=== PATIENT | male | born 1930 | race Caucasian/White ===

== ENCOUNTER 2017-07-09 00:33 | Inpatient (IN) | payer MEDICARE ==
[2017-07-09 00:53] VITALS: BMI 22.7
--- NOTE | 2017-07-09 01:13 | C.PDOC ---
History Of Present Illness Patient is a 87 y/o male who presents to the ED by police s/p wandering on [facility] after a local business direct response consultant called the police. Patient is unable to recall address or purpose of wandering on the street. Denies any PMHx, PSHx, allergies, or current medications. No physical complaints at this time. Chief Complaint (Nursing): Medical Clearance History Per: Patient, Other (police) History/Exam Limitations: no limitations Onset/Duration Of Symptoms: Mins Recent travel outside of the [place]: No Past Medical History Reviewed: Historical Data, Nursing Documentation, Vital Signs Vital Signs: Last Vital Signs Temp 98.8 F 07/09/17 06:11 Pulse 93 H 07/09/17 06:11 Resp 18 07/09/17 06:11 BP 126/69 07/09/17 06:11 Pulse Ox 96 07/09/17 06:11 - Medical History PMH: No Chronic Diseases Surgical History: No Surg Hx Family History: States: No Known Family Hx - Social History Hx Alcohol Use: (unknown) Hx Substance Use: (unknown) Review Of Systems Constitutional: Negative for: Fever, Chills Eyes: Negative for: Pain ENT: Negative for: Ear Pain Cardiovascular: Negative for: Chest Pain, Palpitations, Orthopnea, Edema, Light Headedness Respiratory: Negative for: Cough, Shortness of Breath, Hemoptysis, SOB with Excertion, Pleuritic Pain, Sputum Gastrointestinal: Negative for: Nausea, Vomiting, Abdominal Pain Genitourinary: Negative for: Dysuria Musculoskeletal: Negative for: Neck Pain Skin: Negative for: Rash Neurological: Negative for: Weakness Psych: Negative for: Anxiety, Psychosis Physical Exam - Physical Exam Appears: Well, Non-toxic, No Acute Distress, Other (elderly) Skin: Normal Color, Warm, Dry Head: Atraumatic, Normacephalic Oral Mucosa: Moist Tongue: Normal Appearing Lips: Normal Appearing Teeth: Normal Dentition Throat: Normal Neck: Normal Chest: Symmetrical Cardiovascular: Rhythm Regular, No Murmur Respiratory: Normal Breath Sounds, No Rales, No Rhonchi, No Wheezing Gastrointestinal/Abdominal: Soft, No Tenderness Back: Normal Inspection Male Genital: Normal Inspection Neurological/Psych: Oriented x3 ED Course And Treatment - Laboratory Results Result Diagrams: 07/09/17 01:56 07/09/17 01:56 O2 Sat by Pulse Oximetry: 95 (room air) Pulse Ox Interpretation: Normal - CT Scan/US Head Other Rad Studies (CT/US): Read By Radiologist CT/US Interpretation: EXAM: CT Head Without Intravenous Contrast. CLINICAL HISTORY: 87 years old, male; Pain; Other: Confused; Additional info: Altered. TECHNIQUE: Axial computed tomography images of the head/brain without intravenous contrast. All CT scans at. this facility use one or more dose reduction techniques, viz.: automated exposure control; ma/kV. adjustment per patient size (including targeted exams where dose is matched to indication; i.e. head);. or iterative reconstruction technique. Coronal and sagittal reformatted images were created and reviewed. COMPARISON: No relevant prior studies available. FINDINGS: Brain: Moderate atrophy. Prominent extra-axial spaces along frontal convexities. No intracranial. hemorrhage. No mass. Few scattered foci of decreased attenuation within periventricular/subcortical. white matter. No definite edema. Ventricles: No hydrocephalus. Bones/joints: No acute fracture. Soft tissues: Unremarkable. Vasculature: Atherosclerotic disease of intracranial arteries. Sinuses: Scattered mild mucosal thickening of ethmoid sinuses. Mild mucosal thickening/retention. cysts of maxillary sinuses. Mastoid air cells: No mastoid effusion. Orbits: Unremarkable as visualizedIMPRESSION: 1. Nonspecific white matter changes. Acute infarction may be CT occult within first 24 hours. If a. focal deficit persists, consider followup CT or MRI for further evaluation. 2. Incidental/non-acute findings are described above. Progress Note: Head CT and UA ordered. Medical Decision Making Medical Decision Making: pt without medical complaints. pt will be seen by socially responsible investment adviser today. Disposition - Disposition Disposition Time: 07:07 Condition: STABLE Forms: [facility] (Polish) - POA Present On Arrival: None - Clinical Impression Clinical Impression: Confusion - Scribe Statement The provider has reviewed the documentation as recorded by the Scribe Queta Johnson All medical record entries made by the Scribe were at my direction and personally dictated by me. I have reviewed the chart and agree that the record accurately reflects my personal performance of the history, physical exam, medical decision making, and the department course for this patient. I have also personally directed, reviewed, and agree with the discharge instructions and disposition.
[2017-07-09 02:12] LABS: EOS % 1.7 % (0.0-4.0); HEMATOCRIT 36.7 % (35.0-51.0); MEAN CELL VOLUME 88.2 fL (80.0-94.0); MEAN CORPUSCULAR HEMOGLOBIN 30.1 pg (27.0-31.0); MEAN CORPUSCULAR HGB CONC 34.2 g/dL (33.0-37.0); MEAN PLATELET VOLUME 9.6 fL (7.2-11.7); MONO % 12.8 % (0.0-10.0); RED CELL DISTRIBUTION WIDTH 14.7 % (11.5-14.5); WHITE BLOOD COUNT 6.3 K/uL (4.8-10.8)
[2017-07-09 02:13] LABS: BASO # 0.1 K/uL (0.0-0.2); BASO % 1.1 % (0.0-2.0); EOS # 0.1 K/uL (0.0-0.7); LYMPH # 1.8 K/uL (1.0-4.3); MONO # 0.8 K/uL (0.0-0.8)
[2017-07-09 02:23] LABS: ALKALINE PHOSPHATASE 92 U/L (38-126); ALT/SGPT 18 U/L (21-72); AST/SGOT 29 U/L (17-59); BILIRUBIN,TOTAL 0.6 mg/dL (0.2-1.3); BLOOD UREA NITROGEN 23 mg/dL (9-20); CARBON DIOXIDE 27 mmol/L (22-30); CHLORIDE 100 mmol/L (98-107); GFR AFRICAN-AMERICAN > 60; GLUCOSE,RANDOM 100 mg/dL (75-110); POTASSIUM 4.4 mmol/L (3.6-5.2); SODIUM 136 mmol/L (132-148)
--- NOTE | 2017-07-09 02:48 | CT ---
EXAM: CT Head Without Intravenous Contrast CLINICAL HISTORY: 87 years old, male; Pain; Other: Confused; Additional info: Altered TECHNIQUE: Axial computed tomography images of the head/brain without intravenous contrast. All CT scans at this facility use one or more dose reduction techniques, viz.: automated exposure control; ma/kV adjustment per patient size (including targeted exams where dose is matched to indication; i.e. head); or iterative reconstruction technique. Coronal and sagittal reformatted images were created and reviewed. COMPARISON: No relevant prior studies available. FINDINGS: Brain: Moderate atrophy. Prominent extra-axial spaces along frontal convexities. No intracranial hemorrhage. No mass. Few scattered foci of decreased attenuation within periventricular/subcortical white matter. No definite edema. Ventricles: No hydrocephalus. Bones/joints: No acute fracture. Soft tissues: Unremarkable. Vasculature: Atherosclerotic disease of intracranial arteries. Sinuses: Scattered mild mucosal thickening of ethmoid sinuses. Mild mucosal thickening/retention cysts of maxillary sinuses. Mastoid air cells: No mastoid effusion. Orbits: Unremarkable as visualized. Dental: Dental caries. IMPRESSION: 1. Nonspecific white matter changes. Acute infarction may be CT occult within first 24 hours. If a focal deficit persists, consider followup CT or MRI for further evaluation. 2. Incidental/non-acute findings are described above.
[2017-07-09 07:42] LABS: RBC URINE 2431 /hpf (0-3); URINE BILIRUBIN NEGATIVE (NEGATIVE); URINE BLOOD 3+ (NEGATIVE); URINE COLOR Yellow (YELLOW); URINE GLUCOSE (UA) NORMAL (Normal); URINE KETONE NEGATIVE (NEGATIVE); URINE LEUKOCYTE ESTERASE TRACE Leu/uL (Negative); URINE PROTEIN 2+ mg/dL (NEGATIVE); URINE UROBILINOGEN NORMAL mg/dL (0.2-1.0); WBC URINE 13 /hpf (0-5)
[2017-07-09] MEDS ORDERED: Sodium Chloride 0.9% 1,000 ML IV ONE (10:04)
[2017-07-09] MEDS ORDERED: Sodium Chloride 0.9% 1,000 ML ONE (11:25)
[2017-07-09] MEDS ORDERED: cefTRIAXone IV 1 gm in Dextros 50 ML IV STA (11:38)
--- NOTE | 2017-07-09 12:21 | RAD ---
PROCEDURE: CHEST RADIOGRAPH, 1 VIEW HISTORY: Admission COMPARISON: None available. FINDINGS: LUNGS: The lungs are clear. PLEURA: No pneumothorax or pleural fluid seen. CARDIOVASCULAR: Normal. OSSEOUS STRUCTURES: No significant abnormalities. VISUALIZED UPPER ABDOMEN: Normal. OTHER FINDINGS: None. IMPRESSION: No active pulmonary disease.
--- NOTE | 2017-07-09 14:02 | CP.PCM.HP ---
History of Present Illness - History of Present Illness History of Present Illness: Patient is a 87 y/o male who presents to the ED by police s/p wandering on [facility] after a local business erosion control coordinator called the police. Patient is unable to recall address or purpose of wandering on the street. Denies any PMHx, PSHx, allergies, or current medications. No physical complaints at this time. PRELIMINARY W/U IN ER IS NEG SS TO EVALUATE FURTHER Present on Admission - Present on Admission Any Indicators Present on Admission: No Review of Systems - Review of Systems All systems: reviewed and no additional remarkable complaints except (PERIODS OF CONFUSION) Past Patient History - Past Social History Smoking Status: unknown - PSYCHIATRIC Hx Substance Use: (unknown) Meds Allergies/Adverse Reactions: Allergies Allergy/AdvReac Type Severity Reaction Status Date / Time Unobtainable Allergy Verified 07/09/17 00:53 Physical Exam - Constitutional Appears: Well - Eye Exam Eye Exam: EOMI, Normal appearance, PERRL - ENT Exam ENT Exam: Mucous Membranes Moist, Normal Exam - Respiratory Exam Respiratory Exam: Clear to Auscultation Bilateral, NORMAL BREATHING PATTERN - Cardiovascular Exam Cardiovascular Exam: REGULAR RHYTHM - GI/Abdominal Exam GI & Abdominal Exam: Normal Bowel Sounds, Soft. absent: Tenderness - Rectal Exam Rectal Exam: NORMAL INSPECTION - Back Exam Back exam: NORMAL INSPECTION. absent: CVA tenderness (L), CVA tenderness (R) - Neurological Exam Neurological exam: Alert, CN II-XII Intact, Reflexes Normal (DISORIENTED ) - Psychiatric Exam Psychiatric exam: Flat Affect Results - Vital Signs Recent Vital Signs: Last Vital Signs Temp 99.2 F 07/09/17 13:13 Pulse 87 07/09/17 13:13 Resp 18 07/09/17 13:13 BP 144/88 07/09/17 13:13 Pulse Ox 99 07/09/17 13:13 - Labs Result Diagrams: 07/09/17 01:56 07/09/17 01:56 Labs: Laboratory Results - last 24 hr 07/09/17 07/09/17 07/09/17 01:40 01:56 01:56 WBC 6.3 RBC 4.16 L Hgb 12.5 Hct 36.7 MCV 88.2 MCH 30.1 MCHC 34.2 RDW 14.7 H Plt Count 213 MPV 9.6 Neut % (Auto) 55.4 Lymph % (Auto) 29.0 [place] % (Auto) 12.8 H Eos % (Auto) 1.7 Baso % (Auto) 1.1 Neut # 3.5 Lymph # 1.8 Travis # 0.8 Eos # 0.1 Baso # 0.1 Sodium 136 Potassium 4.4 Chloride 100 Carbon Dioxide 27 Anion Gap 14 BUN 23 H Creatinine 1.2 Est GFR ( Amer) > 60 Est GFR (Non-Af Amer) 58 POC Glucose (mg/dL) 103 Random Glucose 100 Calcium 9.0 Total Bilirubin 0.6 AST 29 ALT 18 L Alkaline Phosphatase 92 Total Creatine Kinase Total Protein 8.0 Albumin 4.0 Globulin 4.0 H Albumin/Globulin Ratio 1.0 Lipase 208 Urine Color Urine Clarity Urine pH Ur Specific [place] Urine Protein Urine Glucose (UA) Urine Ketones Urine Blood Urine Nitrate Urine Bilirubin Urine Urobilinogen Ur Leukocyte Esterase Urine WBC (Auto) Urine RBC (Auto) 07/09/17 07/09/17 07:25 11:33 WBC RBC Hgb Hct MCV MCH MCHC RDW Plt Count MPV Neut % (Auto) Lymph % (Auto) Travis % (Auto) Eos % (Auto) Baso % (Auto) Neut # Lymph # Travis # Eos # Baso # Sodium Potassium Chloride Carbon Dioxide Anion Gap BUN Creatinine Est GFR ( Amer) Est GFR (Non-Af Amer) POC Glucose (mg/dL) Random Glucose Calcium Total Bilirubin AST ALT Alkaline Phosphatase Total Creatine Kinase 117 Total Protein Albumin Globulin Albumin/Globulin Ratio Lipase Urine Color Yellow Urine Clarity Hazy Urine pH 7.0 Ur Specific [place] 1.015 Urine Protein 2+ H Urine Glucose (UA) Normal Urine Ketones Negative Urine Blood 3+ H Urine Nitrate Negative Urine Bilirubin Negative Urine Urobilinogen Normal Ur Leukocyte Esterase Trace Urine WBC (Auto) 13 H Urine RBC (Auto) 2431 H Assessment & Plan (1) Change in mental state Status: Acute Comment: NEURO W/U (2) Delirium Status: Acute Comment: MAY BE SEC TO SEPSIS (3) UTI (urinary tract infection) Status: Acute Comment: IV AB (4) Microscopic hematuria Status: Acute
--- NOTE | 2017-07-09 20:59 | CP.PCM.CON ---
History of Present Illness - History of Present Illness History of Present Illness: INFECTIOUS DISEASE CONSULT;. HPI; Patient is a 87 y/o male who presents to the ED by police s/p wandering on [facility] after a local business van owner operator called the police. Patient is unable to recall address or purpose of wandering on the street. Denies any PMHx, PSHx, allergies, or current medications. No physical complaints at this time. As per night clerk auditor, police were sent to patient's home, which was "uninhabitable ", and apparently neighbors state he lives by himself. PATIENT THEREFORE ADMITTED BECAUSE OF AMS, ? UTI, ? dementia vs delirium. INFECTIOUS DISEASE CONSULTATION REQUESTED BY PMD FOR THE ABOVE. HISTORY TRIED TO OBTAIN BY KINYARWANDA SENIOR PROPERTY ACCOUNTANT-NURSE'S AIDE. PATIENT HARD OF HEARING AND UNABLE TO GIVE ANY DETAILS.PATIENT IS FORGETFUL AND DOES NOT REMEMBER EVENTS. PATIENT PRESENTLY DENIES ANY DYSURIA OR HEMATURIA. CT HEAD IN THE ER -NONSPECIFIC FINDINGS. PMH: No Chronic Diseases Surgical History: No Surg Hx Family History: States: No Known Family Hx.LIVES ALONE. - Social History Hx Alcohol Use: (unknown) Hx Substance Use: (unknown) ALLERGY; UNOBTAINABLE PMD; NO RECOLLECTION. Review of Systems - Review of Systems Systems not reviewed;Unavailable: Dementia, Altered Mental Status (FORGETFUL.) Past Patient History - Past Medical History & Family History Past Medical History?: No - Past Social History Smoking Status: Unknown If Ever Smoked - MUSCULOSKELETAL/RHEUMATOLOGICAL Hx Falls: No - PSYCHIATRIC Hx Substance Use: (unknown) Meds Allergies/Adverse Reactions: Allergies Allergy/AdvReac Type Severity Reaction Status Date / Time Unobtainable Allergy Verified 07/09/17 00:53 - Medications Medications: Current Medications Ceftriaxone Sodium 1 gm/ (Sodium Chloride) 100 mls @ 100 mls/hr IVPB DAILY [facility] Pneumococcal Polyvalent Vaccine (Pneumovax 23 Vaccine) 0.5 ml IM .ONCE ONE Stop: 07/12/17 10:01 Physical Exam - Constitutional Appears: No Acute Distress, Cachectic - Head Exam Head Exam: NORMAL INSPECTION - Eye Exam Eye Exam: EOMI, PERRL - ENT Exam ENT Exam: Normal Oropharynx - Neck Exam Neck exam: Positive for: Normal Inspection. Negative for: Meningismus - Respiratory Exam Respiratory Exam: Clear to Auscultation Bilateral - Cardiovascular Exam Cardiovascular Exam: REGULAR RHYTHM, +S1, +S2 - GI/Abdominal Exam GI & Abdominal Exam: Normal Bowel Sounds, Soft. absent: Tenderness - Extremities Exam Extremities exam: Positive for: pedal pulses present. Negative for: calf tenderness, pedal edema (LT. HAND SWOLLEN. aBLE TO MAKE A FIST.) - Neurological Exam Neurological exam: Altered, CN II-XII Intact - Psychiatric Exam Psychiatric exam: Normal Mood - Skin Skin Exam: Normal Color, Warm Results - Vital Signs Recent Vital Signs: Last Vital Signs Temp 98.7 F 07/09/17 16:28 Pulse 85 07/09/17 16:28 Resp 20 07/09/17 16:28 BP 138/75 07/09/17 16:28 Pulse Ox 98 07/09/17 16:28 - Labs Result Diagrams: 07/10/17 07:56 07/10/17 07:56 Labs: Laboratory Results - last 24 hr 07/09/17 07/09/17 07/09/17 01:40 01:56 01:56 WBC 6.3 RBC 4.16 L Hgb 12.5 Hct 36.7 MCV 88.2 MCH 30.1 MCHC 34.2 RDW 14.7 H Plt Count 213 MPV 9.6 Neut % (Auto) 55.4 Lymph % (Auto) 29.0 [place] % (Auto) 12.8 H Eos % (Auto) 1.7 Baso % (Auto) 1.1 Neut # 3.5 Lymph # 1.8 [place] # 0.8 Eos # 0.1 Baso # 0.1 Sodium 136 Potassium 4.4 Chloride 100 Carbon Dioxide 27 Anion Gap 14 BUN 23 H Creatinine 1.2 Est GFR ( Amer) > 60 Est GFR (Non-Af Amer) 58 POC Glucose (mg/dL) 103 Random Glucose 100 Calcium 9.0 Total Bilirubin 0.6 AST 29 ALT 18 L Alkaline Phosphatase 92 Total Creatine Kinase Total Protein 8.0 Albumin 4.0 Globulin 4.0 H Albumin/Globulin Ratio 1.0 Lipase 208 Urine Color Urine Clarity Urine pH Ur Specific [place] Urine Protein Urine Glucose (UA) Urine Ketones Urine Blood Urine Nitrate Urine Bilirubin Urine Urobilinogen Ur Leukocyte Esterase Urine WBC (Auto) Urine RBC (Auto) 07/09/17 07/09/17 07:25 11:33 WBC RBC Hgb Hct MCV MCH MCHC RDW Plt Count MPV Neut % (Auto) Lymph % (Auto) [place] % (Auto) Eos % (Auto) Baso % (Auto) Neut # Lymph # [place] # Eos # Baso # Sodium Potassium Chloride Carbon Dioxide Anion Gap BUN Creatinine Est GFR ( Amer) Est GFR (Non-Af Amer) POC Glucose (mg/dL) Random Glucose Calcium Total Bilirubin AST ALT Alkaline Phosphatase Total Creatine Kinase 117 Total Protein Albumin Globulin Albumin/Globulin Ratio Lipase Urine Color Yellow Urine Clarity Hazy Urine pH 7.0 Ur Specific [place] 1.015 Urine Protein 2+ H Urine Glucose (UA) Normal Urine Ketones Negative Urine Blood 3+ H Urine Nitrate Negative Urine Bilirubin Negative Urine Urobilinogen Normal Ur Leukocyte Esterase Trace Urine WBC (Auto) 13 H Urine RBC (Auto) 2431 H Assessment & Plan (1) Change in mental state Status: Acute (2) Confusion Status: Acute (3) Microscopic hematuria Status: Acute (4) UTI (urinary tract infection) Status: Acute - Assessment and Plan (Free Text) Plan: PANCULTURES PSA. CONTINUE ROCEPHIN 1 G ONCE A DAY DAILY ORDERED 07/09/17 WILL FOLLOW UP CULTURES TO ADJUST ANTIBIOTICS. NEURO CHECKUP. WILL FOLLOW UP WITH YOU AND MAKE ADJUSTMENTS IN ANTIBIOTICS NECESSARY. THANK YOU VERY MUCH FOR ALLOWING ME TO PARTICIPATE IN THE CARE OF YOUR PATIENT.
[2017-07-10 08:12] LABS: BASO # 0.1 K/uL (0.0-0.2); BASO % 0.9 % (0.0-2.0); EOS # 0.1 K/uL (0.0-0.7); EOS % 1.8 % (0.0-4.0); LYMPH # 1.6 K/uL (1.0-4.3); LYMPH % 28.5 % (20.0-40.0); MEAN CELL VOLUME 88.7 fL (80.0-94.0); MEAN CORPUSCULAR HEMOGLOBIN 30.4 pg (27.0-31.0); MEAN CORPUSCULAR HGB CONC 34.3 g/dL (33.0-37.0); MONO # 0.5 K/uL (0.0-0.8); MONO % 9.2 % (0.0-10.0); NRBC % 0.1 % (0.0-2.0); RED CELL DISTRIBUTION WIDTH 14.4 % (11.5-14.5); WHITE BLOOD COUNT 5.7 K/uL (4.8-10.8)
[2017-07-10 08:34] LABS: ALB/GLOB RATIO 1.3 (1.0-2.1); ALKALINE PHOSPHATASE 75 U/L (38-126); ALT/SGPT 11 U/L (21-72); AST/SGOT 28 U/L (17-59); BILIRUBIN,TOTAL 0.9 mg/dL (0.2-1.3); BLOOD UREA NITROGEN 24 mg/dL (9-20); CALCIUM 8.4 mg/dl (8.6-10.4); CARBON DIOXIDE 22 mmol/L (22-30); CHLORIDE 105 mmol/L (98-107); GFR AFRICAN-AMERICAN > 60; GLUCOSE,RANDOM 83 mg/dL (75-110); POTASSIUM 3.9 mmol/L (3.6-5.2); SODIUM 137 mmol/L (132-148); TOTAL PROTEIN 6.1 g/dL (6.3-8.3)
[2017-07-10 08:55] LABS: PROSTATE SPECIFIC ANTIGEN 8.94 ng/mL (0.00-4.0)
--- NOTE | 2017-07-10 13:51 | CP.PCM.PN ---
Subjective - Date & Time of Evaluation Date of Evaluation: 07/10/17 Time of Evaluation: 13:51 - Subjective Subjective: CHIEF COMPLAINTS TODAY : MORE ALERT , NO COMPLAINTS ROS. HEENT : N. Resp : No cough, wheezing ,pleuritic CP ,or hemoptysis Cardio : No anginal CP, PND, orthopnea, palpitation GI : No abd.pain, n/v ,diarrhea or GI bleeding . 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 Musculoskel : No joint swelling , Derm : No rash Psych : Normal affect. Ext : No swelling ,calf pain PE. Pt. is alert awake in no distress. V.S As noted in the chart Head ,ear nose,throat and eyes : Normal. Neck : Supple with normal carotids. Lungs: Clear air entry. Heart : S1 & S2 normal with S4. No murmur. Abd : Soft non tender with normal bowel sounds. Neuro : Moves all ext. with no localized deficit. Ext : No edema with intact pulses.Non tender calves Derm : No rashes or decubitus ulcer. LABS/RADIOLOGY: ASSESSMENT/PLAN : IV AB Objective - Vital Signs/Intake and Output Vital Signs (last 24 hours): Temp Pulse Resp BP Pulse Ox 98.3 F 88 20 155/80 H 97 07/10/17 07:30 07/10/17 07:30 07/10/17 07:30 07/10/17 07:30 07/10/17 07:30 Intake and Output: 07/10/17 07/10/17 11:59 23:59 Intake Total 360 Output Total 0 Balance 360 - Medications Medications: Current Medications Heparin Sodium (Porcine) (Heparin) 5,000 units SC Q12 [facility] Last Admin: 07/10/17 10:37 Dose: 5,000 units Ceftriaxone Sodium 1 gm/ (Sodium Chloride) 100 mls @ 100 mls/hr IVPB DAILY [facility] Last Admin: 07/10/17 10:37 Dose: 100 mls/hr Pneumococcal Polyvalent Vaccine (Pneumovax 23 Vaccine) 0.5 ml IM .ONCE ONE Stop: 07/12/17 10:01 - Labs Labs: 07/10/17 07:56 07/10/17 07:56 Assessment and Plan (1) Change in mental state Status: Acute (2) Delirium Status: Acute (3) UTI (urinary tract infection) Status: Acute (4) Microscopic hematuria Status: Acute
--- NOTE | 2017-07-10 18:37 | CARD ---
APPROVED REPORT EKG Measurement Heart [id number] <Conclusion> Sinus rhythm with occasional premature ventricular complexes complexes Otherwise normal ECG
--- NOTE | 2017-07-10 22:48 | CP.PCM.PN ---
Subjective - Date & Time of Evaluation Date of Evaluation: 07/10/17 Time of Evaluation: 22:48 - Subjective Subjective: CHIEF COMPLAINTS TODAY : AFEBRILE, No new complaints. ROS. HEENT : N. Resp : No cough, wheezing ,pleuritic CP ,or hemoptysis Cardio : No anginal CP, PND, orthopnea, palpitation GI : No abd.pain, n/v ,diarrhea or GI bleeding . SPANISH LECTURER : No headache, vertigo, focal deficit. Musculoskel : No joint swelling , Derm : No rash Psych : Normal affect. Ext : No swelling ,calf pain PE. Pt. is awake in no distress.fORGETFUL V.S As noted in the chart Head ,ear nose,throat and eyes : Normal. Neck : Supple with normal carotids. Lungs: Clear air entry. Heart : S1 & S2 normal with S4. No murmur. Abd : Soft non tender with normal bowel sounds. Neuro : Moves all ext. with no localized deficit. Ext : No edema with intact pulses.Non tender calves Derm : No rashes or decubitus ulcer. LABS/RADIOLOGY: wbc 5.7 cREATININE 1.2/bun 34 BLOOD CULTURES NEGATIVE FOR 24 HOURS. uRINALYSIS-hazy, 3+ blood, 2+ proteins, WBC 13, RBCs 2,431 ASSESSMENT. AMS - R/O SEPSIS UTI BPH BY HX. ( PSA 8.94 -slightly elevated >) DEMENTIA PLAN : CONTINUE iv ROCEPHIN 1 G ONCE A DAY DAILY.07/09/17. TO DISCUSS WTH PMD ? EVAL 4 MICROSCOPIC HEMATURIA/BPH. Objective - Vital Signs/Intake and Output Vital Signs (last 24 hours): Temp Pulse Resp BP Pulse Ox 98.4 F 97 H 20 126/70 97 07/10/17 15:38 07/10/17 15:38 07/10/17 15:38 07/10/17 15:38 07/10/17 15:38 Intake and Output: 07/10/17 07/11/17 18:59 06:59 Intake Total 400 Balance 400 - Medications Medications: Current Medications Heparin Sodium (Porcine) (Heparin) 5,000 units SC Q12 [facility] Last Admin: 07/10/17 21:36 Dose: Not Given Ceftriaxone Sodium 1 gm/ (Sodium Chloride) 100 mls @ 100 mls/hr IVPB DAILY [facility] Last Admin: 12/22/17 10:37 Dose: 100 mls/hr Pneumococcal Polyvalent Vaccine (Pneumovax 23 Vaccine) 0.5 ml IM .ONCE ONE Stop: 07/12/17 10:01 - Labs Labs: 07/10/17 07:56 07/10/17 07:56 Assessment and Plan (1) Change in mental state Status: Acute (2) Confusion Status: Acute (3) Microscopic hematuria Status: Acute (4) UTI (urinary tract infection) Status: Acute
[2017-07-11 07:35] LABS: BASO % 0.9 % (0.0-2.0); EOS # 0.1 K/uL (0.0-0.7); EOS % 2.4 % (0.0-4.0); HEMATOCRIT 32.6 % (35.0-51.0); LYMPH # 1.6 K/uL (1.0-4.3); LYMPH % 33.5 % (20.0-40.0); MEAN CELL VOLUME 88.4 fL (80.0-94.0); MEAN CORPUSCULAR HEMOGLOBIN 30.5 pg (27.0-31.0); MEAN CORPUSCULAR HGB CONC 34.5 g/dL (33.0-37.0); MEAN PLATELET VOLUME 9.8 fL (7.2-11.7); MONO # 0.6 K/uL (0.0-0.8); MONO % 11.8 % (0.0-10.0); NRBC % 0.1 % (0.0-2.0); RED CELL DISTRIBUTION WIDTH 14.2 % (11.5-14.5); WHITE BLOOD COUNT 4.8 K/uL (4.8-10.8)
[2017-07-11 08:33] LABS: ALB/GLOB RATIO 1.3 (1.0-2.1); ALKALINE PHOSPHATASE 63 U/L (38-126); ALT/SGPT 12 U/L (21-72); AST/SGOT 36 U/L (17-59); BILIRUBIN,TOTAL 0.7 mg/dL (0.2-1.3); BLOOD UREA NITROGEN 29 mg/dL (9-20); CALCIUM 8.4 mg/dl (8.6-10.4); CARBON DIOXIDE 24 mmol/L (22-30); CHLORIDE 104 mmol/L (98-107); GFR AFRICAN-AMERICAN > 60; GLUCOSE,RANDOM 82 mg/dL (75-110); POTASSIUM 4.1 mmol/L (3.6-5.2); SODIUM 136 mmol/L (132-148)
--- NOTE | 2017-07-11 14:30 | CP.PCM.PN ---
Subjective - Date & Time of Evaluation Date of Evaluation: 07/11/17 Time of Evaluation: 14:30 - Subjective Subjective: CHIEF COMPLAINTS TODAY : MORE ALERT , LIMPS WHILE WALKING ROS. HEENT : N. Resp : No cough, wheezing ,pleuritic CP ,or hemoptysis Cardio : No anginal CP, PND, orthopnea, palpitation GI : No abd.pain, n/v ,diarrhea or GI bleeding . 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 Musculoskel : No joint swelling , Derm : No rash Psych : Normal affect. Ext : No swelling ,calf pain PE. Pt. is alert awake in no distress. V.S As noted in the chart Head ,ear nose,throat and eyes : Normal. Neck : Supple with normal carotids. Lungs: Clear air entry. Heart : S1 & S2 normal with S4. No murmur. Abd : Soft non tender with normal bowel sounds. Neuro : Moves all ext. with no localized deficit. Ext : No edema with intact pulses.Non tender calves Derm : No rashes or decubitus ulcer. LABS/RADIOLOGY: ASSESSMENT/PLAN : IV AB PT AND FLORA Objective - Vital Signs/Intake and Output Vital Signs (last 24 hours): Temp Pulse Resp BP Pulse Ox 97.9 F 78 20 134/79 100 07/11/17 06:00 07/11/17 06:00 07/11/17 06:00 07/11/17 06:00 07/11/17 06:00 Intake and Output: 07/11/17 07/11/17 11:59 23:59 Intake Total 240 Balance 240 - Medications Medications: Current Medications Heparin Sodium (Porcine) (Heparin) 5,000 units SC Q12 [facility] Last Admin: 07/11/17 09:52 Dose: 5,000 units Ceftriaxone Sodium 1 gm/ (Sodium Chloride) 100 mls @ 100 mls/hr IVPB DAILY [facility] Last Admin: 07/11/17 09:51 Dose: 100 mls/hr Pneumococcal Polyvalent Vaccine (Pneumovax 23 Vaccine) 0.5 ml IM .ONCE ONE Stop: 07/12/17 10:01 - Labs Labs: 07/11/17 07:15 07/11/17 07:15 Assessment and Plan (1) Change in mental state Status: Acute (2) Delirium Status: Acute (3) UTI (urinary tract infection) Status: Acute (4) Microscopic hematuria Status: Acute
--- NOTE | 2017-07-11 14:58 | CP.PCM.PN ---
Subjective - Date & Time of Evaluation Date of Evaluation: 07/11/17 Time of Evaluation: 14:58 - Subjective Subjective: CHIEF COMPLAINTS TODAY : AFEBRILE, confused at times. very forgetful. ? EARLY DEMENTIA No new complaints. ROS. HEENT : N. Resp : No cough, wheezing ,pleuritic CP ,or hemoptysis Cardio : No anginal CP, PND, orthopnea, palpitation GI : No abd.pain, n/v ,diarrhea or GI bleeding . DIGITAL MEDIA REPRESENTATIVE : No headache, vertigo, focal deficit. Musculoskel : No joint swelling , Derm : No rash Psych : Normal affect. Ext : No swelling ,calf pain PE. Pt. is awake in no distress.fORGETFUL V.S As noted in the chart Head ,ear nose,throat and eyes : Normal. Neck : Supple with normal carotids. Lungs: Clear air entry. Heart : S1 & S2 normal with S4. No murmur. Abd : Soft non tender with normal bowel sounds. Neuro : Moves all ext. with no localized deficit. Ext : No edema with intact pulses.Non tender calves Derm : No rashes or decubitus ulcer. LABS/RADIOLOGY: wbc 5.7 cREATININE 1.2/bun 34 BLOOD CULTURES NEGATIVE FOR 24 HOURS. uRINALYSIS-hazy, 3+ blood, 2+ proteins, WBC 13, RBCs 2,431 URINE CULTURE 10,000 MULTIPLE SPECIES. ASSESSMENT. AMS - R/O SEPSIS ? UTI BPH BY HX. ( PSA 8.94 -slightly elevated >) DEMENTIA PLAN : CONTINUE iv ROCEPHIN 1 G ONCE A DAY DAILY.07/09/17. TO DISCUSS WTH PMD ? EVAL 4 MICROSCOPIC HEMATURIA/BPH. PT HAS PLACEMENT ISSUES. Objective - Vital Signs/Intake and Output Vital Signs (last 24 hours): Temp Pulse Resp BP Pulse Ox 97.9 F 78 20 134/79 100 07/11/17 06:00 07/11/17 06:00 07/11/17 06:00 07/11/17 06:00 07/11/17 06:00 Intake and Output: 07/11/17 07/11/17 06:59 18:59 Intake Total 480 Balance 480 - Medications Medications: Current Medications Heparin Sodium (Porcine) (Heparin) 5,000 units SC Q12 [facility] Last Admin: 07/11/17 09:52 Dose: 5,000 units Ceftriaxone Sodium 1 gm/ (Sodium Chloride) 100 mls @ 100 mls/hr IVPB DAILY [facility] Last Admin: 07/11/17 09:51 Dose: 100 mls/hr Pneumococcal Polyvalent Vaccine (Pneumovax 23 Vaccine) 0.5 ml IM .ONCE ONE Stop: 07/12/17 10:01 - Labs Labs: 07/11/17 07:15 07/11/17 07:15 Assessment and Plan (1) Change in mental state Status: Acute (2) Confusion Status: Acute (3) Microscopic hematuria Status: Acute (4) UTI (urinary tract infection) Status: Acute
[2017-07-12 00:11] VITALS: RESP 20
[2017-07-12 08:23] LABS: BASO % 1.4 % (0.0-2.0); EOS # 0.1 K/uL (0.0-0.7); EOS % 3.3 % (0.0-4.0); LYMPH # 1.2 K/uL (1.0-4.3); LYMPH % 36.7 % (20.0-40.0); MEAN CELL VOLUME 88.2 fL (80.0-94.0); MEAN CORPUSCULAR HEMOGLOBIN 30.2 pg (27.0-31.0); MEAN CORPUSCULAR HGB CONC 34.2 g/dL (33.0-37.0); MEAN PLATELET VOLUME 10.3 fL (7.2-11.7); MONO # 0.4 K/uL (0.0-0.8); MONO % 11.9 % (0.0-10.0); NRBC % 0.2 % (0.0-2.0); RED CELL DISTRIBUTION WIDTH 14.8 % (11.5-14.5); WHITE BLOOD COUNT 3.3 K/uL (4.8-10.8)
[2017-07-12 08:38] LABS: ALB/GLOB RATIO 1.1 (1.0-2.1); ALKALINE PHOSPHATASE 58 U/L (38-126); ALT/SGPT 17 U/L (21-72); AST/SGOT 34 U/L (17-59); BILIRUBIN,TOTAL 0.6 mg/dL (0.2-1.3); BLOOD UREA NITROGEN 22 mg/dL (9-20); CALCIUM 8.2 mg/dl (8.6-10.4); CARBON DIOXIDE 26 mmol/L (22-30); CHLORIDE 104 mmol/L (98-107); GFR AFRICAN-AMERICAN > 60; GLUCOSE,RANDOM 93 mg/dL (75-110); POTASSIUM 3.8 mmol/L (3.6-5.2); SODIUM 135 mmol/L (132-148); TOTAL PROTEIN 6.4 g/dL (6.3-8.3)
[2017-07-12] MEDS ORDERED: Pneumococcal 23-Valent Vaccine IM ONE (10:00)
[2017-07-12] MEDS ORDERED: Influenza Vaccine 60 mcg/0.5 mL SYR (4YR UP) IM ONE (10:00)
--- NOTE | 2017-07-12 15:25 | CP.PCM.PN ---
Subjective - Date & Time of Evaluation Date of Evaluation: 07/12/17 Time of Evaluation: 15:24 - Subjective Subjective: CHIEF COMPLAINTS TODAY : MORE ALERT , LIMPS WHILE WALKING ROS. HEENT : N. Resp : No cough, wheezing ,pleuritic CP ,or hemoptysis Cardio : No anginal CP, PND, orthopnea, palpitation GI : No abd.pain, n/v ,diarrhea or GI bleeding . RECRUITING ADMINISTRATOR : No headache, vertigo, focal deficit. Musculoskel : No joint swelling , Derm : No rash Psych : Normal affect. Ext : No swelling ,calf pain PE. Pt. is alert awake in no distress. V.S As noted in the chart Head ,ear nose,throat and eyes : Normal. Neck : Supple with normal carotids. Lungs: Clear air entry. Heart : S1 & S2 normal with S4. No murmur. Abd : Soft non tender with normal bowel sounds. Neuro : Moves all ext. with no localized deficit. Ext : No edema with intact pulses.Non tender calves Derm : No rashes or decubitus ulcer. LABS/RADIOLOGY: ASSESSMENT/PLAN : IV AB PT AND FLORA Objective - Vital Signs/Intake and Output Vital Signs (last 24 hours): Temp Pulse Resp BP Pulse Ox 97.8 F 70 20 140/76 96 07/12/17 08:00 07/12/17 08:00 07/12/17 08:00 07/12/17 08:00 07/12/17 08:00 Intake and Output: 07/12/17 07/12/17 11:59 23:59 Intake Total 360 Balance 360 - Medications Medications: Current Medications Heparin Sodium (Porcine) (Heparin) 5,000 units SC Q12 [facility] Last Admin: 07/12/17 10:00 Dose: Not Given Ceftriaxone Sodium 1 gm/ (Sodium Chloride) 100 mls @ 100 mls/hr IVPB DAILY [facility] Last Admin: 07/12/17 09:52 Dose: 100 mls/hr - Labs Labs: 07/12/17 07:54 07/12/17 07:54 Assessment and Plan (1) Change in mental state Status: Acute (2) Delirium Status: Acute (3) UTI (urinary tract infection) Status: Acute (4) Microscopic hematuria Status: Acute
[2017-07-13 06:53] LABS: BASO % 0.7 % (0.0-2.0); EOS # 0.1 K/uL (0.0-0.7); EOS % 2.7 % (0.0-4.0); LYMPH # 1.5 K/uL (1.0-4.3); LYMPH % 31.8 % (20.0-40.0); MEAN CORPUSCULAR HEMOGLOBIN 29.9 pg (27.0-31.0); MEAN CORPUSCULAR HGB CONC 33.6 g/dL (33.0-37.0); MEAN PLATELET VOLUME 9.6 fL (7.2-11.7); MONO # 0.5 K/uL (0.0-0.8); MONO % 11.7 % (0.0-10.0); RED CELL DISTRIBUTION WIDTH 14.3 % (11.5-14.5); WHITE BLOOD COUNT 4.6 K/uL (4.8-10.8)
[2017-07-13 07:06] LABS: ALB/GLOB RATIO 1.1 (1.0-2.1); ALKALINE PHOSPHATASE 61 U/L (38-126); ALT/SGPT 23 U/L (21-72); AST/SGOT 30 U/L (17-59); BILIRUBIN,TOTAL 0.5 mg/dL (0.2-1.3); BLOOD UREA NITROGEN 22 mg/dL (9-20); CARBON DIOXIDE 27 mmol/L (22-30); CHLORIDE 102 mmol/L (98-107); GFR AFRICAN-AMERICAN > 60; GLUCOSE,RANDOM 84 mg/dL (75-110); POTASSIUM 3.4 mmol/L (3.6-5.2); SODIUM 136 mmol/L (132-148); TOTAL PROTEIN 6.4 g/dL (6.3-8.3)
--- NOTE | 2017-07-13 13:58 | CP.PCM.PN ---
Subjective - Date & Time of Evaluation Date of Evaluation: 07/13/17 Time of Evaluation: 13:58 - Subjective Subjective: CHIEF COMPLAINTS TODAY : HAD ACUTE AGITATION REQUIRED IM ATIVAN NOT MUCH AMBULATING ROS. HEENT : N. Resp : No cough, wheezing ,pleuritic CP ,or hemoptysis Cardio : No anginal CP, PND, orthopnea, palpitation GI : No abd.pain, n/v ,diarrhea or GI bleeding . FURNACE OPERATOR : No headache, vertigo, focal deficit. Musculoskel : No joint swelling , Derm : No rash Psych : Normal affect. Ext : No swelling ,calf pain PE. Pt. is alert awake in no distress. V.S As noted in the chart Head ,ear nose,throat and eyes : Normal. Neck : Supple with normal carotids. Lungs: Clear air entry. Heart : S1 & S2 normal with S4. No murmur. Abd : Soft non tender with normal bowel sounds. Neuro : Moves all ext. with no localized deficit. Ext : No edema with intact pulses.Non tender calves Derm : No rashes or decubitus ulcer. LABS/RADIOLOGY: ASSESSMENT/PLAN : IV AB PT AND FLORA Objective - Vital Signs/Intake and Output Vital Signs (last 24 hours): Temp Pulse Resp BP Pulse Ox 97.9 F 78 20 125/65 98 07/13/17 07:49 07/13/17 07:49 07/13/17 07:49 07/13/17 07:49 07/13/17 07:49 Intake and Output: 07/13/17 07/13/17 11:59 23:59 Intake Total 120 Balance 120 - Medications Medications: Current Medications Ceftriaxone Sodium 1 gm/ (Sodium Chloride) 100 mls @ 100 mls/hr IVPB DAILY [facility] Last Admin: 07/13/17 10:03 Dose: 100 mls/hr - Labs Labs: 07/13/17 06:45 07/13/17 06:45 Assessment and Plan (1) Change in mental state Status: Acute (2) Delirium Status: Acute (3) UTI (urinary tract infection) Status: Acute (4) Microscopic hematuria Status: Acute
[2017-07-14 07:44] VITALS: TEMP 98.2
--- NOTE | 2017-07-14 12:59 | CP.PCM.PN ---
Subjective - Date & Time of Evaluation Date of Evaluation: 07/14/17 Time of Evaluation: 11:00 - Subjective Subjective: awake, alert, no sob, or chest pains. Objective - Vital Signs/Intake and Output Vital Signs (last 24 hours): Temp Pulse Resp BP Pulse Ox 98.2 F 84 20 139/83 95 07/14/17 07:35 07/14/17 07:35 07/14/17 07:35 07/14/17 07:35 07/14/17 07:35 Intake and Output: 07/14/17 07/14/17 06:59 18:59 Intake Total 120 Balance 120 - Medications Medications: Current Medications Ceftriaxone Sodium 1 gm/ (Sodium Chloride) 100 mls @ 100 mls/hr IVPB DAILY [facility] Last Admin: 07/14/17 10:26 Dose: 100 mls/hr - Labs Labs: 07/13/17 06:45 07/13/17 06:45 Assessment and Plan - Assessment and Plan (Free Text) Assessment: Resident is seen and examined. Alert, awake, ambulating with walker. No sob or chest pains. Discussed with DR Stout, plan to discharge home with the brother. Home care, home PT and VNS set up for unsteady gait, dementia, and fall risk. Advised to follow up with MD in the office 1 week.
--- NOTE | 2017-07-14 13:42 | CP.PCM.DIS ---
Provider - Provider Date of Admission: 07/09/17 12:47 Attending physician: Evy Stout MD Time Spent in preparation of Discharge (in minutes): 35 Diagnosis - Discharge Diagnosis (1) Change in mental state Status: Acute (2) Delirium Status: Acute (3) UTI (urinary tract infection) Status: Acute (4) Microscopic hematuria Status: Acute Hospital Course - Lab Results Lab Results: Micro Results 07/09/17 13:00 Blood Blood Culture - Preliminary NO GROWTH AFTER 4 DAYS 07/09/17 13:30 Blood Blood Culture - Preliminary NO GROWTH AFTER 4 DAYS 07/09/17 11:36 Urine Urine Culture - Final <10,000 CFU/ML. MULTIPLE SPECIES. PROBABLE CONTAMINATION. Most Recent Lab Values WBC 4.6 K/uL (4.8-10.8) L 07/13/17 06:45 RBC 3.82 Mil/uL (4.40-5.90) L 07/13/17 06:45 Hgb 11.4 g/dL (12.0-18.0) L 07/13/17 06:45 Hct 34.0 % (35.0-51.0) L 07/13/17 06:45 MCV 89.0 fL (80.0-94.0) 07/13/17 06:45 MCH 29.9 pg (27.0-31.0) 07/13/17 06:45 MCHC 33.6 g/dL (33.0-37.0) 07/13/17 06:45 RDW 14.3 % (11.5-14.5) 07/13/17 06:45 Plt Count 198 K/uL (130-400) 07/13/17 06:45 MPV 9.6 fL (7.2-11.7) 07/13/17 06:45 Neut % (Auto) 53.1 % (50.0-75.0) 07/13/17 06:45 Lymph % (Auto) 31.8 % (20.0-40.0) 07/13/17 06:45 [place] % (Auto) 11.7 % (0.0-10.0) H 07/13/17 06:45 Eos % (Auto) 2.7 % (0.0-4.0) 07/13/17 06:45 Baso % (Auto) 0.7 % (0.0-2.0) 07/13/17 06:45 Neut # 2.5 K/uL (1.8-7.0) 07/13/17 06:45 Lymph # 1.5 K/uL (1.0-4.3) 07/13/17 06:45 [place] # 0.5 K/uL (0.0-0.8) 07/13/17 06:45 Eos # 0.1 K/uL (0.0-0.7) 07/13/17 06:45 Baso # 0.0 K/uL (0.0-0.2) 07/13/17 06:45 Sodium 136 mmol/L (132-148) 07/13/17 06:45 Potassium 3.4 mmol/L (3.6-5.2) L 07/13/17 06:45 Chloride 102 mmol/L (98-107) 07/13/17 06:45 Carbon Dioxide 27 mmol/L (22-30) 07/13/17 06:45 Anion Gap 11 (10-20) 07/13/17 06:45 BUN 22 mg/dL (9-20) H 07/13/17 06:45 Creatinine 1.2 mg/dL (0.8-1.5) 07/13/17 06:45 Est GFR ( Amer) > 60 07/13/17 06:45 Est GFR (Non-Af Amer) 58 07/13/17 06:45 POC Glucose (mg/dL) 103 mg/dL (65-110) 07/09/17 01:40 Random Glucose 84 mg/dL (75-110) 07/13/17 06:45 Calcium 8.0 mg/dl (8.6-10.4) L 07/13/17 06:45 Total Bilirubin 0.5 mg/dL (0.2-1.3) 07/13/17 06:45 AST 30 U/L (17-59) 07/13/17 06:45 ALT 23 U/L (21-72) 07/13/17 06:45 Alkaline Phosphatase 61 U/L (38-126) 07/13/17 06:45 Total Creatine Kinase 117 U/L (55-170) 07/09/17 11:33 Total Protein 6.4 g/dL (6.3-8.3) 07/13/17 06:45 Albumin 3.4 g/dL (3.5-5.0) L 07/13/17 06:45 Globulin 3.0 gm/dL (2.2-3.9) 07/13/17 06:45 Albumin/Globulin Ratio 1.1 (1.0-2.1) 07/13/17 06:45 Lipase 208 U/L (23-300) 07/09/17 01:56 Prostate Specific Ag 8.94 ng/mL (0.00-4.0) H 07/10/17 07:56 Urine Color Yellow (YELLOW) 07/09/17 07:25 Urine Clarity Hazy (Clear) 07/09/17 07:25 Urine pH 7.0 (5.0-8.0) 07/09/17 07:25 Ur Specific Trout 1.015 (1.003-1.030) 07/09/17 07:25 Urine Protein 2+ mg/dL (NEGATIVE) H 07/09/17 07:25 Urine Glucose (UA) Normal mg/dL (Normal) 07/09/17 07:25 Urine Ketones Negative mg/dL (NEGATIVE) 07/09/17 07:25 Urine Blood 3+ (NEGATIVE) H 07/09/17 07:25 Urine Nitrate Negative (NEGATIVE) 07/09/17 07:25 Urine Bilirubin Negative (NEGATIVE) 07/09/17 07:25 Urine Urobilinogen Normal mg/dL (0.2-1.0) 07/09/17 07:25 Ur Leukocyte Esterase Trace Kit/uL (Negative) 07/09/17 07:25 Urine WBC (Auto) 13 /hpf (0-5) H 07/09/17 07:25 Urine RBC (Auto) 2431 /hpf (0-3) H 07/09/17 07:25 - Hospital Course Hospital Course: Patient is a 87 y/o male who presents to the ED by police s/p wandering on [facility] after a local business medical equipment technician called the police. Patient is unable to recall address or purpose of wandering on the street. Denies any PMHx, PSHx, allergies, or current medications. No physical complaints at this time. PRELIMINARY W/U IN ER IS NEG SS TO EVALUATE FURTHER NEURO/CARDIO W/U NEG PT HAD MILD UTI AND RESPONDED WITH AB PT'S GUARDIAN, BROTHER , DECLINED FLORA PT WAS SENT HOME ON PO AB AND WALKER PT WAS GIVEN MY OFFICE TEL Discharge Exam - Head Exam Head Exam: NORMAL INSPECTION Discharge Plan - Discharge Medications Prescriptions: Walker [Rolling Walker] 1 dev XX DAILY #1 dev - Follow Up Plan Condition: STABLE Disposition: HOME/ ROUTINE
[2017-07-14 14:10] VITALS: BP 139/81; PULSE 80; O2SAT 96
== END 2017-07-14 14:00 | disposition home or self-care (01) | DRG 948 ==
LOC: C.ER 00:33 → C.9E 12:47 → C.3T 15:33
PROVIDERS: ADMIT Internal Medicine Cardiovascular Disease; ATTEND Internal Medicine Cardiovascular Disease
DX: R41.0 Disorientation, unspecified (principal); N39.0 Urinary tract infection, site not specified; R31.29 Other microscopic hematuria; F03.90 Unspecified dementia, unspecified severity, without behavioral disturbance, psychotic disturbance, mood disturbance, and anxiety; Z91.83 Wandering in diseases classified elsewhere